=== PATIENT | female | born 1950 | race Caucasian/White ===

== ENCOUNTER 2016-10-28 02:06 | Inpatient (IN) | payer OTHER ==
[~2016-10-28] VITALS: Ht 162.6 cm; Wt 114.8 kg
[~2016-10-28 02:06] MED LIST: BIOTIN1000 MC1 PO; FERROUS SULFAT325 M3 PO; INDERAL LA60 M1 PO; LASIX20 M1 PO; LEXAPRO10 M1 PO; LIPITOR80 M1 PO; LOSARTAN-HCTZ1 EAC2 PO; MELOXICAM15 M1 PO; NORVASC5 M1 PO; VITAMIN B-121000 MC3 PO; VITAMIN C500 M8 PO; VITAMIN D31000 UNI1 PO
--- NOTE | 2016-10-28 10:34 | Operative Report ---
Operative/Inv Procedure Report Surgery Date: 10/28/16 Name of Procedure: Left total knee arthroplasty Pre-Operative Diagnosis: Left knee primary osteoarthritis Post-Operative Diagnosis: Same Estimated Blood Loss: less than 50ml Surgeon/Medical Nurse: JO PETERSEN,Nacho JIN PA Anesthesia: block Implants: [place] triathlon total knee system-size 5 femur, size 4 tibia, 13 mm cruciate retaining polyethylene, 31 patella Drains: None Specimens: Femoral, tibial, patellar bone Microbiology: Urine Tourniquet: 75min Complications: None Condition: Stable Operative Indication: Patient is a 66-year-old woman with a long history of left knee pain and findings consistent with end-stage osteoarthritis. Conservative measures provided minimal relief. Patient wished to proceed with total knee arthroplasty since symptoms interfere with normal activities of daily living. Risks, benefits and expectations of surgical treatment and further nonsurgical treatment were discussed including but not limited to persistent knee pain, need for subsequent surgery, infection, DVT, injury to blood vessel or nerve, anesthesia risks. Patient wished to proceed with surgical management Operative/Procedure Note Note: Patient was brought to the operating room and transferred to the operating table. Once under appropriate anesthesia the left lower extremity was prepped and draped in standard fashion. Preoperative IV antibiotics were given prophylactically. A standard anterior incision was made after the leg was elevated exsanguinated and tourniquet was inflated to 300 mm of pressure. Standard anterior incision was made for anticipated medial parapatellar approach to the knee. There was significant depth to the soft tissue layer. Medial parapatellar approach was used to enter the knee with a minimal extension into the quadriceps tendon. End-stage osteoarthritic changes in all 3 compartments were noted. Osteophytes were excised. Remnants of the anterior and medial and anterior lateral discal tissues were excised. Remnants of the ACL excised. Portion of the fat pad was removed for proper visualization of the lateral tibial plateau. A drill was used to enter the intramedullary canal for the intramedullary guide for the distal femoral cut. 6 valgus cut was chosen. The cut was made while protecting the soft tissues with appropriate retractors. The femur was measured to a size 5. Size 5 cutting block was pinned in place and the cuts made while protecting the soft tissues. I then turned my attention to the tibia. The external tibial alignment guide was applied for a neutral cut from medial to lateral and reproducing patient's posterior slope based on preoperative templating and intraoperative findings. The cut was made while protecting the posterior structures as well as the medial and lateral structures. I did need to remove a very large osteophyte medially just to be able to sublux the tibia forward. A larger osteophyte was still in the back of the knee which needed to be dealt with after the tibial cut was made. When the cut was made it was removed and the tibia was measured to a size 4. Patient had very large osteophytes along the medial aspect of the tibia. The tibia sized to a size 4 and then I proceeded with a trial. The knee was taken out to full extension. Patient would likely require a 13 mm polyethylene component. Primarily this was due to large osteophyte formation removals and patient's overall laxity from her degenerative subluxation. Once I completed the preparation of the posterior aspect of the knee by removing large osteophytes with the curved osteotome and large curette. I also needed to use a lamina drum worker due to the extensive nature of the osteophyte formations posteriorly once this was completed I used the cautery to cauterize the posterior capsule to minimize postoperative bleeding. I measured the patella and the appropriate thickness was removed and then replaced with a 31 patella. The 3 lug holes were drilled the knee was taken through range of motion. No need for a lateral release. I then finished preparation the tibia using the appropriate sized tibial punch. I then removed all trial bone ends and instrumentation and copiously irrigated the knee. I used the anterior chamfer bone from the femur to plug the distal femur and minimize postoperative hemarthrosis and swelling. After copious irrigation was completed I applied the cement was being mixed on the back table to the tibial surface. Cement was applied to the dry clean bony surfaces of the tibia. The size 4 tibial component was impacted in place with the appropriate rotation based on my previous trial and marking my rotation previously. Excess cement was removed with curettes. Cement was applied to the dry clean bony surfaces of the femur. The size 5 femoral component was impacted in place and excess cement was removed with curettes. 11 mm polyethylene was placed for the cement mantle compression and the knee was taken out to full extension. Cement was applied to the dry clean bony surfaces of the patella. The size 31 patella was impacted in place and excess cement was removed with a knife. I did a periarticular pericapsular injection of exparel. Once the cement hardened I took the knee through range of motion. I was satisfied with the symmetric nature of the soft tissue balancing but I felt that the 13 mm component allowed full extension and normal mid flexion stability as well as full flexion to gravity. The size of patient's posterior thigh limited the motion only. Trial polyethylene was removed. Copious irrigation of the tibial tray followed. I made sure there was no remaining soft tissue, bone fragments, cement fragments. I then impacted the definitive size 13 cruciate retaining polyethylene insert into place. The locking mechanism was confirmed. The knee was taken through range of motion. I was satisfied with the full extension as well as mid flexion stability and full flexion to gravity. Excellent patellofemoral tracking. Copious irrigation followed. The tourniquet was deflated at 75 minutes. Hemostasis was obtained. There was no need for a drain. I then closed the medial retinacular approach with interrupted #1 Vicryl sutures. Subcutaneous tissues closed in 2 layers with 2-0 Vicryl due to the depth of the wound. Skin was closed running 3-0 Vicryl suture with the knee in flexion. Appropriate dressings were applied and patient was awakened and taken to recovery room in good condition. No intraoperative complications. Blood loss was less than 50 mL Discharge Disposition: PACU
--- NOTE | 2016-10-28 13:22 | Admission Core Measures ---
Admission Meds I reviewed the following Meds: Current Medications Sig/Ellen Start time Last Medication Dose Stop Time Status Admin Ropivacaine 500 ML ONCE ONE 10/28 1145 AC (NAROPIN) 10/30 1344 ON-Q Ball 1 BAG Acute Coronary Syndrome Inclusion Criteria ACS Diagnosis No Inpatient Core Measures LDL Reminder: If No, please order W/I first 24hr of stay Congestive Heart Failure Inclusion Criteria CHF Diagnosis No Cerebrovascular accident Inclusion Criteria CVA/TIA Diagnosis No Inpatient Core Measures Bedside Swallow Eval Reminder: If BSE failed, place ST order Antithrombotic Reminder: Order Antithrombotic Medication by end of day 2 Antithrombotic Reminder: Document Reason Antithrombotic Not ordered by end of day 2 AFIB/Flutter Reminder: If Present, add to problem list AFIB/Flutter Reminder: Order Anticoag Medication for pts with AFIB/Flutter Atherosclerosis Reminder: If Present, add to problem list LDL Reminder: If No, please order W/I first 24hr of stay PT Order Reminder: If No, please order Venous thromboembolism Inpatient Core Measures VTE Risk Factors: Age > 40, Obesity, Surgery [facility] prophylaxis d/t No contraindications No VTE Pharm Prophylaxis d/t No contraindications Inclusion Criteria - Per Current guidelines, there needs to be overlap - treatment for the first 5 days of Warfarin therapy. - Parenteral Anticoagulation (IV or SC) needs to be - given along with Warfarin therapy. VTE Diagnosis No VTE Type NONE VTE Confirmed by (Test) NONE Problem List As ranked by this Provider includes Assessment & Plan 1. Status post left knee replacement HOME MEDS Home Med List Amlodipine Besylate (Norvasc) 5 MG TABLET 1 TAB PO DAILY BP (Reported) Ascorbic Acid (Vitamin C) 500 MG TABLET 1 TAB PO DAILY SUPPLEMENT (Reported) Atorvastatin Calcium (Lipitor) 80 MG TABLET 1 TAB PO DAILY CHOLESTEROL ( Reported) Biotin (Unknown Strength) TAB.CHEW (Unknown Dose) PO DAILY SUPPLEMENT ( Reported) Cholecalciferol (Vitamin D3) (Vitamin D3) 1,000 UNIT CAPSULE 1 CAP PO DAILY SUPPLEMENT (Reported) Cyanocobalamin (Vitamin B-12) 1,000 MCG TABLET 1 TAB PO DAILY SUPPLEMENT ( Reported) Escitalopram Oxalate (Lexapro) 10 MG TABLET 1 TAB PO DAILY DEPRESSION ( Reported) Ferrous Sulfate 325 MG (65 MG IRON) TABLET 1 TAB PO DAILY PRE OP (Reported) Furosemide (Lasix) 20 MG TABLET 1 TAB PO DAILY BP (Reported) Losartan/Hydrochlorothiazide (Losartan-Hctz 100-25 MG Tab) 1 EACH TABLET 1 TAB PO DAILY BP (Reported) Meloxicam 15 MG TABLET 1 TAB PO DAILY BACK PAIN (Reported) Propranolol LA (Inderal LA) 60 MG CAP.SA.24H 1 CAP PO 1600 TREMOR (Reported)
--- NOTE | 2016-10-28 13:25 | Surgical Discharge Summary ---
Visit Information Visit Dates Admission Date: 10/28/16 Discharge Date: 10/30/16 History of Present Illness Chief Complaint: see h&p Medical History Cardiovascular: hypertension, hyperlipidemia Endocrine: diabetes Cancer(s): breast cancer Surgical History Pertinent Surgical History: none Psychosocial History Who Do You Live With? Family Services at Home: None What is Your Primary Language? Lithuanian Review of Systems: SEE H&P Hospital Course Course Attending Physician: ANNABEL AVINA MD Primary Care Physician: PAVEL PETERSEN,[facility] Course: Patient was admitted to [facility] for elective surgery on 10/28/2016 and underwent left total knee replacement. The patient tolerated the procedure well, without complications. She was started on Eliquis for DVT prophylaxis postoperatively. The postoperative course remained uneventful. Pain was well controlled with oral pain medication, tolerated a regular diet, and voiding without difficulty. The patient was evaluated by physical therapy during admission, was deemed stable from a medical standpoint, and was discharged. Allergies: Coded Allergies: NO KNOWN ALLERGIES (12/04/15) Significant Procedures: 10/28/2016 left total knee replacement Disposition Summary Disposition Principal Diagnosis: Left knee DJD/osteoarthritis Additional Diagnosis: Same Discharge Disposition: home health services Discharge Instructions General Discharge Information Code Status: Full Code Patient's Diet: Diabetic Patient's Activity: You may ambulate as desired with rolling walker. Hip precautions when sitting. Avoid strenuous activity and heavy lifting, pushing, or pulling. No driving while using narcotics. Follow-Up Instructions/Appts: Avoid bathing, but you may shower as desired. Dry dressing change once daily. Please f/u with Dr. Avina in 2 weeks. Please report any of the following symptoms to M.D.: Fever greater than 101, redness around the incision, drainage from the wound, chest pain, shortness of breath. Medications at Discharge Discharge Medications: Stop taking the following medications: Meloxicam (Meloxicam) 15 MG TABLET ORAL DAILY Continue taking these medications: Losartan/Hydrochlorothiazide (Losartan-Hctz 100-25 MG Tab) 1 EACH TABLET 1 Tablet ORAL DAILY Comments: Last Taken: 10/30/16 Time: 8:15 AM Furosemide (Lasix) 20 MG TABLET 1 Tablet ORAL DAILY Comments: Last Taken: 10/30/16 Time: 8:15 AM Amlodipine Besylate (Norvasc) 5 MG TABLET 1 Tablet ORAL DAILY Comments: Last Taken: 10/30/16 Time: 8:15 AM Propranolol LA (Inderal LA) 60 MG CAP.SA.24H 1 Capsule ORAL 1600 Comments: Last Taken: 10/29/16 Time: 4:30 PM Escitalopram Oxalate (Lexapro) 10 MG TABLET 1 Tablet ORAL DAILY Comments: Last Taken: 10/30/16 Time: 8:15 AM Atorvastatin Calcium (Lipitor) 80 MG TABLET 1 Tablet ORAL DAILY Comments: Last Taken: 10/30/16 Time: 8:15 AM Biotin (Biotin) (Unknown Strength) TAB.CHEW 1 Tablet ORAL DAILY Comments: NOT GIVEN IN HOSPITAL Ascorbic Acid (Vitamin C) 500 MG TABLET 1 Tablet ORAL DAILY Comments: Last Taken: 10/30/16 Time: 8:15 AM Cholecalciferol (Vitamin D3) (Vitamin D3) 1,000 UNIT CAPSULE 1 Capsule ORAL DAILY Comments: Last Taken: 10/30/16 Time: 8:15 AM Cyanocobalamin (Vitamin B-12) 1,000 MCG TABLET 1 Tablet ORAL DAILY Comments: Last Taken: 10/30/16 Time: 8:15 AM Ferrous Sulfate (Ferrous Sulfate) 325 MG (65 MG IRON) TABLET 1 Tablet ORAL DAILY Comments: Last Taken: 10/30/16 Time: 8:15 AM Start taking the following new medications: Apixaban (Eliquis) 2.5 MG TABLET 1 Tablet ORAL TWICE DAILY Days = 30 No Refills Comments: Last Taken: 10/30/16 Time: 8:15 AM Oxycodone HCl/Acetaminophen (Percocet 5-325 MG Tablet) 5 MG-325 MG TABLET 1-2 Tablet ORAL EVERY 4 HOURS NEEDED as needed for PAIN Qty = 30 No Refills Comments: LAST TAKEN 2 PERCOCET 10/30/16 AT 12 NOON Docusate Sodium (Colace) 100 MG CAPSULE 1 Capsule ORAL TWICE DAILY Days = 7 No Refills Instructions: HOLD FOR LOOSE BM'S Comments: NOT GIVEN IN HOSPITAL Rolling Walker (Rolling Walker) UNIT Unit SEE INSTRUCTIONS Qty = 1 No Refills Instructions: Use as instructed.
--- NOTE | 2016-10-28 13:28 | Patient Discharge Instructions ---
Discharge Instructions General Discharge Information You were seen/treated for: Left knee DJD/osteoarthritis You had these procedures: Left total knee replacement Watch for these problems: Fever greater than 101, redness, drainage from the wound, difficulty bearing weight, chest pain, shortness of breath Do not soak the wound: Yes Daily wet to dry dressings: No No bath, but you may shower: Yes Other wound care: Avoid bathing, but you may shower as desired. Dry dressing change once daily. Diet Continue normal diet: Yes Recommended Diet: Diabetic Activity Full Activity/No Limits: No Activity Self Limited: Yes Pounds, do NOT lift more than: 5 Activity Limited to: Weight bear as tolerated Other activity limits: You may ambulate as desired with rolling walker. Avoid strenuous activity and heavy lifting, pushing, or pulling. No driving while using narcotics. Acute Coronary Syndrome Inclusion Criteria At DC or during hospital stay patient has or had the following: ACS DIAGNOSIS No Discharge Core Measures Meds if any: Prescribed or Continued at Discharge Meds if any: NOT Prescribed or Continued at Discharge Congestive Heart Failure Inclusion Criteria At DC or during hospital stay patient has or had the following: CHF DIAGNOSIS No Discharge Core Measures Meds if any: Prescribed or Continued at Discharge Meds if any: NOT Prescribed or Continued at Discharge Cerebrovascular accident Inclusion Criteria At DC or during hospital stay patient has or had the following: CVA/TIA Diagnosis No Discharge Core Measures Meds if any: Prescribed or Continued at Discharge Meds if any: NOT Prescribed or Continued at Discharge Venous thromboembolism Inclusion Criteria VTE Diagnosis No VTE Type NONE VTE Confirmed by (Test) NONE Discharge Core Measures - Per Current guidelines, there needs to be overlap - treatment for the first 5 days of Warfarin therapy. - If discharged on Warfarin prior to 5 days of - overlap therapy, the patient will need to be - assessed for post discharge needs including - *Post discharge parental anticoagulation - *Warfarin and/or parental anticoagulation education - *Follow up date to check INR post discharge At least 5 days overlap therapy as Inpatient No Meds if any: Prescribed or Continued at Discharge Note: Overlap Therapy is Warfarin and Anticoagulant Meds if any: NOT Prescribed or Continued at Discharge
--- NOTE | 2016-10-28 13:47 | PN- Orthopedic ---
Subjective Subjective: Post op check Awake, alert post op Has not ambulated yet Pain well controlled at this time Denies nausea, tolerating diet Objective Vital Signs and I&Os VSS, afebrile alvarado: good urine output General: alert and oriented times three Chest: clear anteriorly bilaterally, RRR Abd: soft Ext: warm, positive sensate, FROM 5/5 DELMER BLE, no calf tenderness On Q in place L groin Wound: dressed, dry, ice pack in place Assessment/Plan Assessment/Plan 66 yo female s/p L TKR PT - WBAT dc alvarado in am pain management eliquis for dvt ppx vancomycin x 1 dose - ppx Core Measures/Miscellaneous Alvarado Catheter Date In: 10/28/16 Still Needed? Yes (post op 24 hrs) Venous Thromboembolism VTE Risk Factors: Age > 40, Surgery VTE Contraindications: No Contraindications VTE Diagnosis: No VTE Type: NONE VTE Confirmed by (Test): NONE [facility] Is Beta [facility] a Home Med? Yes If Yes, Was This Ordered Today? Yes Antibiotics Is Patient on Antibiotics? Yes If Yes: prophylaxis
--- NOTE | 2016-10-28 15:00 | NUR ---
PATIENT ARRIVED TO FLOOR FROM PACU. ADMITTED S/P LEFT TOTAL KNEE REPLACEMENT SHE IS ALERT AND ORIENTATED X3. VSS. CARDIOPULMONARY STABLE. LEFT KNEE DSG CDI. MICKEY WRAPPED WITH ICE DHEERAJ IN PLACE. DENIES PAIN. ONQ PUMP AT THE LEFT ADDUCTOR CANAL. DSG CDI. INFUSING AT 10MLHR. PHYSICAL THERAPIST AT BEDSIDE ON ARRIVAL. PATIENT UP AND AMBULATING WITH PT. IV FLUIDS INFUSING. ORIENTATED TO ROOM AND CALL LIGHT. WILL FOLLOW PLAN OF CARE.
[2016-10-28 15:09] VITALS: BP 130/72
[2016-10-28] MEDS ORDERED: COLACE100 M1 PO (16:46)
[2016-10-28] MEDS ORDERED: PERCOCET 5-3251 EACH PO (16:46)
[2016-10-28] MEDS ORDERED: ELIQUIS2.5 M1 PO (16:46)
[2016-10-28 17:12] VITALS: BP 122/70
[2016-10-28 19:06] VITALS: BP 107/62
[2016-10-28 21:14] VITALS: BP 120/66
[2016-10-29 01:00] VITALS: BP 110/66
[2016-10-29 06:56] VITALS: BP 110/66
--- NOTE | 2016-10-29 07:28 | PN- Orthopedic ---
See Addendum Subjective Subjective: Reports "stiffness". Pain controlled. Tolerating clears. Slept in chair overnight. No dizziness. No shortness of breath. No chest pains. Objective Vital Signs and I&Os Vital Signs Date Time Temp Pulse Resp B/P B/P Pulse O2 O2 Flow FiO2 Mean Ox Delivery Rate 10/29 0656 98.1 79 20 110/66 93 Room Air 10/29 0100 97.9 84 20 110/66 94 Room Air 10/28 2114 97.7 82 20 120/66 92 Room Air 10/28 1928 Room Air Room Air 10/28 1906 98.5 77 20 107/62 90 Room Air 10/28 1815 98.5 79 20 122/70 10/28 1712 98.5 79 20 122/70 93 Room Air 10/28 1509 97.7 60 18 130/72 97 Room Air Room Air Intake & Output 10/29 0800 10/29 0000 10/28 1600 10/28 0800 10/28 0000 10/27 1600 Intake Total 200 600 Output Total 450 600 Balance -250 0 Intake, IV 400 Intake, Oral 200 200 Output, Urine 450 600 Patient 253 lb Weight Weight Reported by Patient Measurement Method Physical Exam: General - alert & oriented x 3. comfortable. no acute distress. Lungs - clear bilaterally. no w/r/r. Cardiac - s1s2. reg. Abdomen - soft. nontender. - alvarado draining clear, yellow urine. Extremities - warm bilaterally. no c/c/e. left leg dressing c/d/i. on q in place. calves soft and nontender. nvi. Current Medications: Current Medications Sig/Ellen Start time Last Medication Dose Route Stop Time Status Admin Acetaminophen 650 MG Q4P PRN 10/28 1500 AC PO Amlodipine Besylate 5 MG DAILY 10/29 1000 AC PO Apixaban 2.5 MG BID 10/29 1000 AC PO Apixaban 2.5 MG BID 10/28 2199 DC PO Ascorbic Acid 500 MG DAILY 10/29 1000 AC PO Atorvastatin Calcium 80 MG DAILY 10/29 1000 AC PO Cholecalciferol 1,000 IU DAILY 10/29 1000 AC PO Cyanocobalamin 1,000 MCG DAILY 10/29 1000 AC PO Docusate Sodium 100 MG BID PRN 10/29 0727 AC PO Docusate Sodium 100 MG BID 10/28 2199 DC PO Escitalopram Oxalate 10 MG DAILY 10/29 1000 AC PO Fentanyl Citrate 100 MCG .STK-MED ONE 10/28 1009 DC IM 10/28 1010 Ferrous Sulfate 325 MG DAILY 10/29 1000 AC PO Furosemide 20 MG DAILY 10/29 1000 AC PO Hydrochlorothiazide 25 MG DAILY 10/29 1000 AC PO Losartan Potassium 100 MG DAILY 10/29 1000 AC PO Midazolam HCl 2 MG .STK-MED ONE 10/28 1008 DC IM 10/28 1009 Morphine Sulfate 4 MG Q3P PRN 10/28 1500 AC 10/29 IV 0445 Morphine Sulfate 10 MG .STK-MED ONE 10/28 1009 DC IV 10/28 1010 Ondansetron HCl 4 MG Q6P PRN 10/28 1500 AC IV Oxycodone/ 1 TAB Q4P PRN 10/28 1500 AC Acetaminophen PO Oxycodone/ 2 TAB Q4P PRN 10/28 1500 AC Acetaminophen PO Polyethylene Glycol 17 GM DAILY 10/29 1000 AC PO Propranolol HCl 60 MG 1600 10/28 1600 AC 10/28 PO 1815 Ropivacaine 500 ML ONCE ONE 10/28 1145 AC ON-Q Ball 1 BAG INJ 10/30 1344 Sodium Chloride 1,000 ML .[id number] 10/28 1500 DC 10/28 IV 1528 Tranexamic Acid 2,000 MG .STK-MED ONE 10/28 1007 DC IV 10/28 1008 Vancomycin HCl 1,750 MG ONCE ONE 10/28 2200 DC 10/28 Sodium Chloride 500 ML IV 10/28 2359 2120 Vancomycin HCl 1,750 MG ONCE ONE 10/28 0630 DC Sodium Chloride 500 ML IV 10/28 0829 Assessment/Plan Assessment/Plan This 66 yo female POD#1 s/p L TKR tolerating diet. d/c iv fluids pain control as ordered d/c alvarado f/u labs eliquis - dvt ppx daisha-operative vanco completed continue PT d/c planning will d/w Core Measures/Miscellaneous Alvarado Catheter Date In: 10/28/16 Venous Thromboembolism VTE Risk Factors: Age > 40, Surgery VTE Contraindications: No Contraindications VTE Diagnosis: No VTE Type: NONE VTE Confirmed by (Test): NONE [facility] Is [facility] a Home Med? Yes If Yes, Was This Ordered Today? Yes Antibiotics Is Patient on Antibiotics? Yes If Yes: prophylaxis
[2016-10-29 08:31] LABS: ABSOLUTE BASOPHIL COUNT 0 /CUMM (0.0-0.2); ABSOLUTE EOSINOPHIL COUNT 0 /CUMM (0.0-0.7); ABSOLUTE GRANULOCYTE CT 14.1 /CUMM (1.4-6.5); ABSOLUTE LYMPH COUNT 1.2 /CUMM (1.2-3.4); BASOPHIL % 0 % (0.0-2.0); EOSINOPHIL % 0 % (0-5); HEMATOCRIT 40.4 % (37-47); MEAN CORPUSCULAR HGB 30.3 PG (27.0-31.0); MEAN CORPUSCULAR HGB CONC 33.4 G/DL (33.0-37.0); MEAN CORPUSCULAR VOLUME 90.8 FL (81.0-99.0); MEAN PLATELET VOLUME 9.3 FL (7.4-10.4); PLATELET COUNT 193 /CUMM (130-400); RBC DISTRIBUTION WIDTH 12.6 % (11.5-14.5); RED BLOOD CELL CT 4.45 /CUMM (4.20-5.40); WHITE BLOOD CELL COUNT 16.2 /CUMM (4.8-10.8)
[2016-10-29 09:24] LABS: GRANULOCYTE % 86.7 % (42.2-75.2)
--- NOTE | 2016-10-29 13:36 | NUR ---
PATIENT CONTINUES TO BE IN PAIN. DR. ZAMUDIO IN ANESTHESIA CALLED. PER MD, TO INCREASE ONQ PUMP FROM 10ML/HR TO 14ML/HR. ORDER READ BACK AND VERIFIED. PATIENT NOTIFIED ON THIS CHANGE. PATIENT IN AGREEMENT.
[2016-10-29 14:09] VITALS: BP 112/74
[2016-10-29 22:23] VITALS: BP 114/60
[2016-10-30 06:44] VITALS: BP 114/60
--- NOTE | 2016-10-30 07:19 | PN- Orthopedic ---
See Addendum Subjective Subjective: Reports pain improves with percocet. Preliminary plan for discharge for home once she clears stairs. Tolerating diet. No nausea/vomiting. Voiding well. No bm yet. Objective Vital Signs and I&Os Vital Signs Date Time Temp Pulse Resp B/P B/P Pulse O2 O2 Flow FiO2 Mean Ox Delivery Rate 10/30 0644 98.0 71 20 114/60 94 Room Air 10/29 2223 98.0 73 21 114/60 92 Room Air 10/29 1633 76 130/90 10/29 1409 98.3 76 22 112/74 94 10/29 0925 110/70 10/29 0924 110/70 Intake & Output 10/30 0800 10/30 0000 10/29 1600 10/29 0800 10/29 0000 10/28 1600 Intake Total 304 218 4987 200 600 Output Total 300 450 450 600 Balance 150 -100 1650 -250 0 Intake, IV 20 400 Intake, Oral 773 244 9190 200 200 Output, Urine 300 450 450 600 Patient 253 lb Weight Weight Reported by Patient Measurement Method Physical Exam: General - alert & oriented x 3. comfortable. no acute distress. Lungs - clear bilaterally. no w/r/r. Cardiac - s1s2. reg. Abdomen - soft. nontender. Extremities - left leg dressing removed. incision approximated with steri strips. no erythema or exudates. on q removed. calves soft and nontender b/l. nvi. Current Medications: Current Medications Sig/Ellen Start time Last Medication Dose Route Stop Time Status Admin Acetaminophen 650 MG Q4P PRN 10/28 1500 AC PO Amlodipine Besylate 5 MG DAILY 10/29 1000 AC 10/29 PO 924 Apixaban 2.5 MG BID 10/29 1000 AC 10/29 PO 2107 Ascorbic Acid 500 MG DAILY 10/29 1000 AC 10/29 PO 924 Atorvastatin Calcium 80 MG DAILY 10/29 1000 AC 10/29 PO 924 Cholecalciferol 1,000 IU DAILY 10/29 1000 AC 10/29 PO 924 Cyanocobalamin 1,000 MCG DAILY 10/29 1000 AC 10/29 PO 924 Docusate Sodium 100 MG BID PRN 10/29 0727 AC PO Escitalopram Oxalate 10 MG DAILY 10/29 1000 AC 10/29 PO 924 Ferrous Sulfate 325 MG DAILY 10/29 1000 AC 10/29 PO 923 Furosemide 20 MG DAILY 10/29 1000 AC 10/29 PO 0925 Hydrochlorothiazide 25 MG DAILY 10/29 1000 AC 10/29 PO 0925 Losartan Potassium 100 MG DAILY 10/29 1000 AC 10/29 PO 0924 Morphine Sulfate 4 MG Q3P PRN 10/28 1500 AC 10/29 IV 1637 Ondansetron HCl 4 MG Q6P PRN 10/28 1500 AC 10/29 IV 1310 Oxycodone/ 1 TAB Q4P PRN 10/28 1500 AC Acetaminophen PO Oxycodone/ 2 TAB Q4P PRN 10/28 1500 AC 10/30 Acetaminophen PO 0720 Patient Medication 1 ED .STK-MED ONE 10/29 1417 MN Teaching ED 10/29 1418 Polyethylene Glycol 17 GM DAILY 10/29 1000 AC PO Propranolol HCl 60 MG 1600 10/28 1600 AC 10/29 PO 1633 Ropivacaine 500 ML ONCE ONE 10/28 1145 AC ON-Q Ball 1 BAG INJ 10/30 1344 Results Last 48 Hours of Labs: Laboratory Tests 10/29 0745 Chemistry Sodium (137 - 145 mmol/L) 136 L Potassium (3.5 - 5.1 mmol/L) 3.7 Chloride (98 - 107 mmol/L) 104 Carbon Dioxide (22 - 30 mmol/L) 24 Anion Gap (5 - 16) 8 BUN (7 - 17 mg/dL) 14 Creatinine (0.5 - 1.0 mg/dL) 0.5 Estimated GFR (>60 ml/min) > 60 BUN/Creatinine Ratio (7 - 25 %) 28.0 H Hematology CBC w Diff NO MAN DIFF REQ WBC (4.8 - 10.8 /CUMM) 16.2 H RBC (4.20 - 5.40 /CUMM) 4.45 Hgb (12.0 - 16.0 G/DL) 13.5 Hct (37 - 47 %) 40.4 MCV (81.0 - 99.0 FL) 90.8 MCH (27.0 - 31.0 PG) 30.3 RDW (11.5 - 14.5 %) 12.6 Plt Count (130 - 400 /CUMM) 193 MPV (7.4 - 10.4 FL) 9.3 Gran % (42.2 - 75.2 %) 86.7 H Lymphocytes % (20.5 - 51.1 %) 7.1 L Monocytes % (1.7 - 9.3 %) 6.2 Eosinophils % (0 - 5 %) 0 Basophils % (0.0 - 2.0 %) 0 L Absolute Granulocytes (1.4 - 6.5 /CUMM) 14.1 H Absolute Lymphocytes (1.2 - 3.4 /CUMM) 1.2 Absolute Monocytes (0.10 - 0.60 /CUMM) 1.0 H Absolute Eosinophils (0.0 - 0.7 /CUMM) 0 Absolute Basophils (0.0 - 0.2 /CUMM) 0 PUBS MCHC (33.0 - 37.0 G/DL) 33.4 Assessment/Plan Assessment/Plan This 66 yo female POD#2 s/p L TKR tolerating diet percocet prn pain control eliquis - dvt ppx dressing changed on q removed f/u PT, needs to clear stairs in order to go home with services d/c planning will d/w Core Measures/Miscellaneous Sharma Catheter Date In: 10/28/16 Venous Thromboembolism VTE Risk Factors: Age > 40, Surgery VTE Contraindications: No Contraindications VTE Diagnosis: No VTE Type: NONE VTE Confirmed by (Test): NONE [facility] Is [facility] a Home Med? Yes If Yes, Was This Ordered Today? Yes Antibiotics Is Patient on Antibiotics? Yes If Yes: prophylaxis
[2016-10-30] MEDS ORDERED: RW (07:23)
[2016-10-30 10:00] VITALS: BP 130/77
--- NOTE | 2016-10-30 14:29 | RADIOLOGY REPORT ---
EXAMINATION: XR KNEE, LEFT CLINICAL INFORMATION: Status post left total knee arthroplasty. COMPARISON: None TECHNIQUE: Frontal and lateral views of the left knee. FINDINGS: There are immediate post total knee arthroplasty changes with metallic distal femoral and proximal tibial components, resurfacing of patella, and a radiolucent spacer without evidence of immediate complication. IMPRESSION: Postoperative changes as noted.
== END 2016-10-30 14:31 | disposition home health service (06) | DRG 470 ==
LOC: SDA 02:06 → ENRESERV 13:46 → ENTRNSPT 14:20 → EDTRNSPTSTS 14:27 → 2NA 14:49 → CMPTRNSPT 14:54 → ENPENDDIS 10-30 09:41 → 2NA 10-30 14:31
PROVIDERS: Physician Assistant Surgical; ADMIT Orthopaedic Surgery
PROC: 0SRD0J9 Replacement of Left Knee Joint with Synthetic Substitute, Cemented, Open Approach (ICD-10-PCS; principal; 2016-10-28)
PROC: 3E0T3CZ (ICD-10-PCS; 2016-10-28)
DX: M17.12 Unilateral primary osteoarthritis, left knee (principal); M32.9 Systemic lupus erythematosus, unspecified; Z68.41 Body mass index [BMI] 40.0-44.9, adult; E11.9 Type 2 diabetes mellitus without complications; I10 Essential (primary) hypertension; Z85.3 Personal history of malignant neoplasm of breast; E66.9 Obesity, unspecified; E78.5 Hyperlipidemia, unspecified
CPT/HCPCS: 2NASP; 73562-LT; 82436; 87086; 97110-GO; 97116-GO; 97161-GP; 97530-GO; C1713; C9290; J2795; J3370; J3490; J7040